=== PATIENT | female | born 1985 | race Two or more races ===

== ENCOUNTER → 2025-01-10 | Outpatient (CLI) | payer MEDICAID, SELFPAY ==
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
== END | disposition home or self-care (01) ==
PROVIDERS: PCP Nurse Practitioner Family; Referring Provider Physician Assistant; Visit Provider Physician Assistant
DX: M19.041 Primary osteoarthritis, right hand (principal); M21.831 Other specified acquired deformities of right forearm; M79.642 Pain in left hand; M19.032 Primary osteoarthritis, left wrist; M19.031 Primary osteoarthritis, right wrist
CPT/HCPCS: 73110; 73130

== ENCOUNTER → 2025-04-13 | Outpatient (CLI) | payer MEDICAID, SELFPAY ==
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
== END | disposition home or self-care (01) ==
LOC: SMRI 11:55
PROVIDERS: PCP Family Medicine
DX: M19.042 Primary osteoarthritis, left hand (principal); M67.834 Other specified disorders of tendon, left wrist; Z87.828 Personal history of other (healed) physical injury and trauma
CPT/HCPCS: 73218